=== PATIENT | female | born 1980 | race Caucasian/White ===

== ENCOUNTER 2025-06-10 06:56 | Observation (INO) | payer BC ==
[2025-06-09 09:56] LABS: BASOPHILS % 0.3 % (0.0-1.0); EOSINOPHILS % 1.6 % (0.0-6.0); LYMPHOCYTES % 23.6 % (18.0-39.1); MONOCYTES % 9.8 % (4.4-11.3); NEUTROPHILS % 63.6 % (38.7-80.0); RED CELL DISTRIBUTION WIDTH 11.8 % (11.7-14.4)
[2025-06-09 10:20] LABS: EST GLOMERULAR FILTRATION RATE 98.0 ML/MIN (>=60)
[2025-06-09 10:30] LABS: INR 1.24
[~2025-06-10] VITALS: Ht 162.6 cm; Wt 78.9 kg
[~2025-06-10 06:56] MED LIST: AMBIEN10 MG PO; BUSPIRONE HCL5 MG PO; ESTRACE42.5 GM TOP; LATUDA20 MG PO; LIALDA1.2 GM PO; OXCARBAZEPINE600 MG PO; PLAQUENIL200 MG PO; SKYRIZI150 MG/1 M
[2025-06-10] MEDS: CEFAZOLIN SODIUM 2 GM ONE (07:54)
[2025-06-10] MEDS: LACTATED RINGER'S 1,000 ML ONE (07:54)
[2025-06-10] MEDS ORDERED: MIDAZOLAM HCL 2 MG/2 ML VIAL ONE (08:38)
[2025-06-10] MEDS ORDERED: LIDOCAINE HCL 2% LOCAL INJ 5 ML SDV VIAL INJ ONE (08:38)
[2025-06-10] MEDS ORDERED: SEVOFLURANE INHAL SOLN 250 ML PEN BTL ONE (08:38)
[2025-06-10] MEDS ORDERED: PROPOFOL IV EMULSION 10 MG/ML 20 ML VIAL ONE (08:38)
[2025-06-10] MEDS ORDERED: ACETAMINOPHEN 1000 MG/100 ML 100 ML IV ONE (08:38)
[2025-06-10] MEDS ORDERED: FENTANYL CITRATE/PF 100MCG/2 ML INJ ONE (08:38)
[2025-06-10] MEDS ORDERED: ROCURONIUM BROMIDE 1 ML IV ONE (08:38)
[2025-06-10] MEDS ORDERED: FAMOTIDINE 20 MG/2 ML VIAL IV ONE (08:58)
[2025-06-10] MEDS ORDERED: DEXAMETHASONE SOD PHOS INJ 4 MG/ML SDV ONE (09:49)
[2025-06-10] MEDS ORDERED: ONDANSETRON HCL INJ 2MG/ML 2ML 2 MG/ML VIAL ONE (09:49)
[2025-06-10] MEDS ORDERED: SUGAMMADEX SODIUM 200 MG/2 ML VIAL IV ONE (10:11)
[2025-06-10] MEDS ORDERED: HYDROCODON-ACE1 EA12 PO (11:29)
[2025-06-10] MEDS ORDERED: OXYCODONE/ACETAMINOPHEN 5-325 1 EACH TABLET PO PRN (11:30)
[2025-06-10] MEDS ORDERED: ACETAMINOPHEN 325 MG TAB PO PRN (11:30)
[2025-06-10] MEDS ORDERED: MAGNESIUM/ALUMINUM/SIMETHICONE 30 ML UDC PO PRN (11:30)
[2025-06-10] MEDS ORDERED: CEPACOL SORE THROAT LOZENGES PO PRN (11:30)
[2025-06-10] MEDS: ONDANSETRON HCL INJ 2MG/ML 2ML 2 MG/ML VIAL ONE (11:35)
[2025-06-10] MEDS: FENTANYL CITRATE/PF 100MCG/2 ML INJ ONE (11:35)
[2025-06-10 12:00] VITALS: BP 123/87; PULSE 70; RESP 18; TEMP 97.6; O2SAT 97
[2025-06-10 12:50] VITALS: BP 122/85; PULSE 72; RESP 17; TEMP 97; O2SAT 97
[2025-06-10] MEDS: LACTATED RINGER'S 1,000 ML IV SCH (13:40)
[2025-06-10] MEDS: HYDROMORPHONE 2MG/ML IV PRN (13:40)
[2025-06-10] MEDS: ONDANSETRON HCL INJ 2MG/ML 2ML 2 MG/ML VIAL IV PRN (13:40)
[2025-06-10] MEDS: CARISOPRODOL 350 MG TAB PO PRN (15:59)
[2025-06-10 16:00] VITALS: BP 118/76; PULSE 78; RESP 17; TEMP 97.7; O2SAT 99
[2025-06-10] MEDS: OXCARBAZEPINE 300 MG TAB PO SCH (16:00)
[2025-06-10] MEDS: BUSPIRONE HCL 5 MG TAB PO SCH (16:00)
[2025-06-10] MEDS: PROMETHAZINE HCL (IM) 25 MG/ML VIAL IM PRN (19:06)
[2025-06-10 20:00] VITALS: BP 118/76; PULSE 78; RESP 17; TEMP 97.7; O2SAT 99
[2025-06-10] MEDS: MESALAMINE 400 MG CAP PO SCH (20:56)
[2025-06-10] MEDS ORDERED: ZOLPIDEM TARTRATE 5 MG TAB PO PRN (21:00)
[2025-06-10] MEDS ORDERED: ZOLPIDEM TARTRATE 10 MG TAB PO PRN (21:00)
[2025-06-11] MEDS: DIPHENHYDRAMINE HCL 25 MG CAP PO ONE (06:43)
[2025-06-11] MEDS ORDERED: HYDROCORTISONE 1% EXT PRN (06:45)
[2025-06-11] MEDS: HYDROXYCHLOROQUINE SULFATE 200 MG TAB PO SCH (08:14)
[2025-06-11] MEDS: LURASIDONE HCL 20 MG PO SCH (08:15)
[2025-06-11 08:20] VITALS: BP_SYST 116; BP_SYST 155; BP_DIAS 66; BP_DIAS 77; PULSE 61; PULSE 78; RESP 16; TEMP 97.6; TEMP 99.5; O2SAT 97; O2SAT 98
[2025-06-11] MEDS: ESTRADIOL 42.5 GM CR TOP SCH (08:31)
== END 2025-06-11 11:07 | disposition home or self-care (01) ==
LOC: OR 06:56 → EDBD 09:00 → PACU V 11:25 → MED/SURG 12:22
PROVIDERS: ADMIT Neurological Surgery; ATTEND Neurological Surgery
DX: M50.121 Cervical disc disorder at C4-C5 level with radiculopathy (principal); M50.122 Cervical disc disorder at C5-C6 level with radiculopathy; M06.9 Rheumatoid arthritis, unspecified; L93.0 Discoid lupus erythematosus; Z01.810 Encounter for preprocedural cardiovascular examination; Z01.812 Encounter for preprocedural laboratory examination; Z01.818 Encounter for other preprocedural examination; K21.9 Gastro-esophageal reflux disease without esophagitis; F31.9 Bipolar disorder, unspecified; G43.909 Migraine, unspecified, not intractable, without status migrainosus; K58.9 Irritable bowel syndrome, unspecified; Z96.649 Presence of unspecified artificial hip joint
CPT/HCPCS: 20931; 22551; 22552; 22845; 36415; 71046; 72040; 76000; 80048; 85025; 85610; 85730; 86850; 86900; 88304; 88311; 93005; G0378 ×2; J0131; J0690 ×2; J1100; J1171 ×2; J1308; J2003; J2250; J2405; J2550; J2704; J3010; J7121; C1713